=== PATIENT | female | born 1980 | race African-American/Black ===

== ENCOUNTER 2016-08-17 14:03 | Emergency (ER) | payer SELFPAY ==
[~2016-08-17] VITALS: Ht 170.2 cm; Wt 108.5 kg
[~2016-08-17 14:03] MED LIST: BUPR300T4 PO; LISI10TA2 PO; OXYC-323 PO; SERT100T8 PO
[2016-08-17] MEDS ORDERED: traMADol 50 MG TABLET PO ONE (15:45)
[2016-08-17] MEDS ORDERED: ONDANSETRON ODT 4 MG TAB.RAPDIS. PO ONE (15:45)
[2016-08-17] MEDS ORDERED: FAMOTIDINE 20 MG TABLET. PO ONE (15:45)
--- NOTE | 2016-08-17 16:10 | ED.ADGEN ---
Past Medical History Past Medical History: Hypertension Past Surgical History: Appendectomy, , Hysterectomy, Tubal ligation Alcohol Use: Occasionally Drug Use: None Adult General Chief Complaint Chief Complaint: ABDOMINAL PAIN HPI HPI Patient is a 36 year old female with history of peptic ulcer disease, previous cholecystectomy hysterectomy and appendectomy who presents with vague right upper quadrant pain which is nonradiating. Pain is intermittent brief lasting 1-2 minutes. It is not associated with nausea vomiting diarrhea or constipation. It is not worse with food. Patient has had similar pain in the past but does not recall cause. No medications or therapy taken prior to ED arrival. Pain is currently described as mild. No fever chills sweats, no flank pain and urinary frequency urgency dysuria or flank pain no other acute symptoms or complaints. Patient's accompanied at bedside by her and daughter. Review of Systems Review of Systems ROS as per HPI. Current Medications Current Medications Current Medications Medications (Trade) Dose Ordered Sig/Perry Start Time Stop Time Status Last Admin Dose Admin Famotidine (Pepcid) 20 mg 1X ONCE 08/17/16 15:45 08/17/16 15:46 DC Ondansetron HCl (Zofran Odt) 4 mg 1X ONCE 08/17/16 15:45 08/17/16 15:46 DC Tramadol HCl (Ultram) 50 mg 1X ONCE 08/17/16 15:45 08/17/16 15:46 DC Allergies Allergies Allergies Coded Allergies Type Severity Reaction Last Updated Verified morphine Allergy Intermediate rash 07/03/13 Yes Physical Exam Physical Exam Constitutional: Well developed, well nourished, no acute distress, non-toxic appearance. HENT: Normocephalic, atraumatic, bilateral external ears normal, oropharynx moist, no oral exudates, nose normal. Eyes: PERRLA, EOM. Neck: Normal range of motion, no tenderness, supple, no stridor. Cardiovascular: Regular rate and rhythm. Lungs & Thorax: Bilateral breath sounds clear to auscultation. Abdomen: Bowel sounds normal, soft, mild right upper quadrant pain tenderness. Skin: Warm, dry, no erythema, no rash. Back: No tenderness, no CVA tenderness. Extremities: No tenderness, no cyanosis, no clubbing, ROM intact, no edema. Neurologic: Alert and oriented X 3, normal motor function, normal sensory function, no focal deficits noted. Psychologic: Affect normal, judgement normal, mood normal. Current Patient Data Vital Signs Vital Signs Date Time Temp Pulse Resp B/P (MAP) Pulse Ox O2 Delivery O2 Flow Rate FiO2 08/17/16 14:23 98.6 87 18 131/84 (100) 98 Room Air 98.6 Lab Values Laboratory Tests Test 08/17/16 13:27 POC Urine HCG, Qualitative Hcg negative (Negative) EKG EKG [] Radiology/Procedures Radiology/Procedures [] Course & Med Decision Making Course & Med Decision Making Pertinent Labs and Imaging studies reviewed. (See chart for details) [Vague mild, Right upper quadrant pain, abdomen is soft nontender. UA negative. Recommend supportive care will resume and antacids with follow-up with PCP in 2- 3 days for reevaluation. Return precautions reviewed.] Dragon Disclaimer Dragon Disclaimer This electronic medical record was generated, in whole or in part, using a voice recognition dictation system. ANA CRISTINA RIVERA DO Aug 17, 2016 16:10
[2016-08-17 16:34] LABS: BILIRUBIN,URINE NEGATIVE (NEG); GLUCOSE,URINE 500 mg/dL (NEG); NITRITE,URINE NEGATIVE (NEG); PROTEIN,URINE 30 mg/dL (NEG-TRACE); UROBILINOGEN,URINE 0.2 mg/dL (0.2 mg/dL)
[2016-08-17 16:41] LABS: BACTERIA,URINE 0 /HPF (0-FEW); RBC,URINE 0 /HPF (0-2); SQUAMOUS EPITHELIAL CELL,UR FEW /LPF; WBC,URINE RARE /HPF (0-4)
[2016-08-17 17:17] VITALS: BP 145/88
== END 2016-08-17 17:19 | disposition home or self-care (01) ==
LOC: ER 14:03
DX: R10.11 Right upper quadrant pain (principal); I10 Essential (primary) hypertension; Z90.49 Acquired absence of other specified parts of digestive tract; Z90.710 Acquired absence of both cervix and uterus; Z98.51 Tubal ligation status; Z88.5 Allergy status to narcotic agent
CPT/HCPCS: 81001; 81025; 99284; Q0162

== ENCOUNTER 2020-03-05 12:50 | Emergency (ER) | payer SELFPAY ==
[~2020-03-05] VITALS: Ht 170.2 cm; Wt 106.6 kg
[~2020-03-05 12:50] MED LIST changes: -BUPR300T4 PO; +BUPR300T92 PO; +CLIN300C9 PO; +HYDR-2145 PO; -OXYC-323 PO; +OXYC1TAB15 PO
[2020-03-05 14:25] LABS: BILIRUBIN,URINE NEGATIVE (NEG); CLARITY,URINE CLEAR; COLOR,URINE YELLOW; NITRITE,URINE NEGATIVE (NEG); PH,URINE 5.5 (<5.0-8.0); PROTEIN,URINE NEGATIVE (NEG-TRACE); UROBILINOGEN,URINE 0.2 mg/dL (0.2 mg/dL)
[2020-03-05 14:32] LABS: BACTERIA,URINE FEW /HPF (0-FEW); HYALINE CASTS, URINE OCCASIONAL /HPF; RBC,URINE 0 /HPF (0-2)
[2020-03-05 14:44] LABS: BASO # 0.1 x10^3/uL (0.0-0.2); BASO % 1 % (0-3); EOS # 0.2 x10^3/uL (0.0-0.7); EOS % 2 % (0-3); HEMATOCRIT 37.8 % (36.0-47.0); HEMOGLOBIN 12.1 g/dL (12.0-15.5); LYMPH # 3.5 x10^3/uL (1.0-4.8); LYMPH % 33 % (24-48); MEAN CORPUSCULAR HEMOGLOBIN 27 pg (25-35); MEAN CORPUSCULAR HGB CONC 32 g/dL (31-37); MEAN CORPUSCULAR VOLUME 84 fL (79-100); MONO # 0.6 x10^3/uL (0.0-1.1); MONO % 5 % (0-9); NEUT # 6.3 x10^3/uL (1.8-7.7); NEUT % 59 % (31-73); PLATELET COUNT 213 x10^3/uL (140-400); RED BLOOD COUNT 4.52 x10^6/uL (3.50-5.40); RED CELL DISTRIBUTION WIDTH 12.5 % (11.5-14.5); WHITE BLOOD COUNT 10.7 x10^3/uL (4.0-11.0)
[2020-03-05 14:54] LABS: CALCIUM 8.6 mg/dL (8.5-10.1); GFR 73.9
[2020-03-05 15:00] LABS: ALBUMIN 3.5 g/dL (3.4-5.0); ALBUMIN/GLOBULIN RATIO 0.9 (1.0-1.7); TOTAL BILIRUBIN 0.5 mg/dL (0.2-1.0); TOTAL PROTEIN 7.3 g/dL (6.4-8.2)
[2020-03-05 15:44] VITALS: BP 132/71
[2020-03-05] MEDS ORDERED: CEPH-264 PO (15:45)
[2020-03-05] MEDS ORDERED: FLUC150T PO (15:45)
--- NOTE | 2020-03-05 15:46 | ED.ADGEN ---
Past Medical History Past Medical History: Diabetes-Type II, Hypertension Past Surgical History: Appendectomy, Cholecystectomy, , Hysterectomy Smoking Status: Current Every Day Smoker Alcohol Use: Occasionally Drug Use: None General Adult EDM: Chief Complaint: DIZZY/LIGHT HEADED HPI: HPI: Patient is a 40 year old AA female who presents emergency department with complaints of feeling lightheaded this morning. Patient reports when she was at work today her blood pressure was 80/65 and she felt like she does not pass out. Patient also complains of nausea. She denies any vomiting, diarrhea, abdominal pain, dysuria, increased urinary frequency, hematuria, fever, cough, shortness of breath, chest pain, or palpitations. Patient denies any numbness, tingling, weakness, headache, or vision changes. She reports that she has been using a nicotine vape instead of smoking cigarettes for the last week. Patient reports that she had been vaping when the dizziness happened at work today. She reports a history of type 2 diabetes and high blood pressure that she takes lisinopril and Metformin for. Patient denies any syncopal episodes prior to today. She currently denies any pain. Review of Systems: Review of Systems: Complete ROS is negative unless otherwise noted in HPI. Allergies: Allergies: Allergies Coded Allergies Type Severity Reaction Last Updated Verified morphine Allergy Intermediate rash 07/03/13 Yes Physical Exam: PE: See Above Constitutional: Well developed, well nourished, no acute distress, non-toxic appearance, obese. [] HENT: Normocephalic, atraumatic, bilateral external ears normal, nose normal. [] Eyes: PERRLA, EOMI, conjunctiva normal, no discharge. [] Neck: Normal range of motion, no stridor. [] Cardiovascular:Heart rate regular rhythm Lungs & Thorax: Respirations even and unlabored, no retractions, no respiratory distress Abdomen: soft, no tenderness Skin: Warm, dry, no erythema, no rash. [] Extremities: No cyanosis, ROM intact, no edema. [] Neurologic: Alert and oriented X 3, no focal deficits noted. [] Psychologic: Affect normal, judgement normal, mood normal. [] Current Patient Data: Labs: Laboratory Tests Test 03/05/20 13:38 03/05/20 14:36 Urine Collection Type Unknown Urine Color Yellow Urine Clarity Clear Urine pH 5.5 (<5.0-8.0) Urine Specific [place] 1.020 (1.000-1.030) Urine Protein Negative mg/dL (NEG-TRACE) Urine Glucose (UA) >=1000 mg/dL (NEG) Urine Ketones (Stick) Negative mg/dL (NEG) Urine Blood Negative (NEG) Urine Nitrite Negative (NEG) Urine Bilirubin Negative (NEG) Urine Urobilinogen Dipstick 0.2 mg/dL (0.2 mg/dL) Urine Leukocyte Esterase Negative (NEG) Urine RBC 0 /HPF (0-2) Urine WBC 5-10 /HPF (0-4) Urine Squamous Epithelial Cells Few /LPF Urine Bacteria Few /HPF (0-FEW) Urine Hyaline Casts Occasional /HPF Urine Mucus Slight /LPF White Blood Count 10.7 x10^3/uL (4.0-11.0) Red Blood Count 4.52 x10^6/uL (3.50-5.40) Hemoglobin 12.1 g/dL (12.0-15.5) Hematocrit 37.8 % (36.0-47.0) Mean Corpuscular Volume 84 fL (79-100) Mean Corpuscular Hemoglobin 27 pg (25-35) Mean Corpuscular Hemoglobin Concent 32 g/dL (31-37) Red Cell Distribution Width 12.5 % (11.5-14.5) Platelet Count 213 x10^3/uL (140-400) Neutrophils (%) (Auto) 59 % (31-73) Lymphocytes (%) (Auto) 33 % (24-48) Monocytes (%) (Auto) 5 % (0-9) Eosinophils (%) (Auto) 2 % (0-3) Basophils (%) (Auto) 1 % (0-3) Neutrophils # (Auto) 6.3 x10^3/uL (1.8-7.7) Lymphocytes # (Auto) 3.5 x10^3/uL (1.0-4.8) Monocytes # (Auto) 0.6 x10^3/uL (0.0-1.1) Eosinophils # (Auto) 0.2 x10^3/uL (0.0-0.7) Basophils # (Auto) 0.1 x10^3/uL (0.0-0.2) Sodium Level 137 mmol/L (136-145) Potassium Level 4.0 mmol/L (3.5-5.1) Chloride Level 102 mmol/L (98-107) Carbon Dioxide Level 24 mmol/L (21-32) Anion Gap 11 (6-14) Blood Urea Nitrogen 20 mg/dL (7-20) Creatinine 1.0 mg/dL (0.6-1.0) Estimated GFR (Cockcroft-Gault) 73.9 BUN/Creatinine Ratio 20 (6-20) Glucose Level 280 mg/dL (70-99) H Calcium Level 8.6 mg/dL (8.5-10.1) Total Bilirubin 0.5 mg/dL (0.2-1.0) Aspartate Amino Transferase (AST) 12 U/L (15-37) L Alanine Aminotransferase (ALT) 21 U/L (14-59) Alkaline Phosphatase 68 U/L (46-116) Total Protein 7.3 g/dL (6.4-8.2) Albumin 3.5 g/dL (3.4-5.0) Albumin/Globulin Ratio 0.9 (1.0-1.7) L Laboratory Tests 03/05/20 14:36 Laboratory Tests 03/05/20 14:36 Vital Signs: Vital Signs Date Time Temp Pulse Resp B/P (MAP) Pulse Ox O2 Delivery O2 Flow Rate FiO2 03/05/20 13:30 98.1 90 24 125/69 (87) 100 Room Air 98.1 EKG: EK-sinus rhythm, rate 87, no STEMI, read by Dr. Sosa [] Heart Score: Risk Factors: Risk Factors: DM, Current or recent (<one month) smoker, HTN, HLP, family history of CAD, obesity. Risk Scores: Score 0 - 3: 2.5% MACE over next 6 weeks - Discharge Home Score 4 - 6: 20.3% MACE over next 6 weeks - Admit for Clinical Observation Score 7 - 10: 72.7% MACE over next 6 weeks - Early Invasive Strategies Radiology/Procedures: Radiology/Procedures: [] Course & Med Decision Making: Course & Med Decision Making Pertinent Labs and Imaging studies reviewed. (See chart for details) 40-year-old female presented emergency department for evaluation of lightheadedness. Work-up included labs, EKG, and orthostatic blood pressures Orthostatic blood pressures were unremarkable. Patient's vital signs were stable in the emergency room. EKG revealed no acute changes sinus rhythm, rate 87. . CBC was unremarkable. CMP revealed a glucose of 280, otherwise unremarkable; UA was concerning for greater than thousand glucose, 5-10 white blood cells, few squames, and few bacteria. We will treat patient for urinary tract infection. Prescription written for Keflex 500 mg p.o. twice daily. Patient was informed of urinary tract infection and otherwise normal results. I encouraged the patient stop using the new nicotine vape and encouraged her to stop smoking cigarettes. Patient requested prescription written for nystatin that she gets yeast infections with antibiotics. Patient instructed to follow-up with her primary care doctor the next 1 to 2 days, return to the ER symptoms worsen or fever develops. Patient verbalized an understanding of home care, medications, follow-up, and return to ED instructions and was in agreement with the plan of care. [] Dragon Disclaimer: Dragon Disclaimer: This electronic medical record was generated, in whole or in part, using a voice recognition dictation system. Departure Departure Impression: Primary Impression: Urinary tract infection Additional Impressions: Light-headed feeling Vapes nicotine containing substance Disposition: 01 DC HOME SELF CARE/HOMELESS Condition: STABLE Referrals: NO PCP (PCP) Patient Instructions: Urinary Tract Infection, [id number] Additional Instructions: Fill prescription(s) and use as directed. Avoid bladder irritants such as caffeine, carbonation, and spicy foods. Increase clear fluids. Please stop using vaping devices. Follow up with your primary care doctor 1 to 2 days, return to the ER if symptoms worsen or fever develops. Thank you for choosing [facility], have a great new year! Scripts Fluconazole (DIFLUCAN) 150 Mg Tablet 1 TAB PO ONCE PRN for SEE COMMENTS for 1 Day, #1 TAB 1 Refill prn Yeast infection. May repeat medication in 72 hours if symptoms persist. Prov: VIRI CHARLES APRN 03/05/20 Cephalexin (KEFLEX) 500 Mg Capsule 500 MG PO BID for 7 Days, #14 CAP 0 Refills Prov: VIRI CHARLES APRN 03/05/20 Problem Qualifiers Primary Impression: Urinary tract infection Urinary tract infection type: site unspecified Hematuria presence: without hematuria Qualified Codes: N39.0 - Urinary tract infection, site not specified VIRI CHARLES APRN Mar 05, 2020 15:46
== END 2020-03-05 16:14 | disposition home or self-care (01) ==
LOC: ER 12:50
DX: N39.0 Urinary tract infection, site not specified (principal); R42 Dizziness and giddiness; F17.290 Nicotine dependence, other tobacco product, uncomplicated; E11.9 Type 2 diabetes mellitus without complications; I10 Essential (primary) hypertension; F17.200 Nicotine dependence, unspecified, uncomplicated; Z88.5 Allergy status to narcotic agent
CPT/HCPCS: 36415; 80053; 81001; 85025; 87086; 93005; 99285-25